=== PATIENT | female | born 1940 | race Caucasian/White ===

== ENCOUNTER 2017-02-27 06:35 | Emergency (ER) | payer OTHER ==
[~2017-02-27] VITALS: Ht 152.4 cm; Wt 80.0 kg
[2017-02-27 06:36] VITALS: BP 145/85
[2017-02-27] MEDS ORDERED: DIAZEPAM 5 MG TABLET ONE (06:55)
[2017-02-27] MEDS ORDERED: OXYcodone/APAP 5/325MG TABLET ONE (06:55)
[2017-02-27] MEDS ORDERED: ONDANSETRON ODT 4 MG ONE (06:55)
[2017-02-27] MEDS ORDERED: ONDANSETRON ODT 4 MG PO ONE (07:00)
[2017-02-27] MEDS ORDERED: DIAZEPAM 5 MG TABLET PO ONE (07:00)
[2017-02-27] MEDS ORDERED: OXYcodone/APAP 5/325MG TABLET PO ONE (07:00)
[2017-02-27 08:06] LABS: MICROSCOPIC AUTO
[2017-02-27 08:09] LABS: CULTURE INDICATED? YES
== END 2017-02-27 09:20 | disposition home or self-care (01) ==
LOC: ED 07:51
DX: M54.5 Low back pain (principal)
CPT/HCPCS: 72110; 73502; 81001; 87086; 99285; Q0162